=== PATIENT | female | born 1970 | race Caucasian/White ===

== ENCOUNTER 2020-09-22 13:23 | Outpatient (CLI) | payer OTHER, SELFPAY ==
--- NOTE | 2020-09-22 13:34 | MM_ITS ---
WS: [id number] SCREENING DIGITAL MAMMOGRAM WITH CAD HISTORY: SCREENING COMPARISON: None available. Bilateral CC and MLO views submitted. Computer aided detection analyzed. Breast composition: There are scattered areas of fibroglandular density. No suspicious masses, microc alcifications or architectural distortion. Lucent centered calcifications in the anterior RIGHT breas t. MM/[place] [id number] IMPRESSION: BI-RADS: 2-Benign FOLLOW UP: 1 Year Follow-up
== END 2020-09-22 13:24 | disposition home or self-care (01) ==
LOC: RADSHAW 13:28
PROVIDERS: PCP Nurse Practitioner; Visit Provider Nurse Practitioner
DX: Z12.31 Encounter for screening mammogram for malignant neoplasm of breast (principal)
CPT/HCPCS: 77067

== ENCOUNTER → 2024-03-28 09:30 | Outpatient (BNVA) | payer MEDICAID, SELFPAY | PROVIDERS: PCP Nurse Practitioner; Visit Provider Nurse Practitioner Family | DX: L57.0 Actinic keratosis (principal); L57.8 Other skin changes due to chronic exposure to nonionizing radiation; L81.5 Leukoderma, not elsewhere classified; L82.1 Other seborrheic keratosis; L82.0 Inflamed seborrheic keratosis; L81.4 Other melanin hyperpigmentation; L55.1 Sunburn of second degree; D22.4 Melanocytic nevi of scalp and neck | CPT/HCPCS: 17000; 17110; 99203 ==

== ENCOUNTER 2024-06-27 07:50 | Outpatient (CLI) | payer BC, MEDICAID, SELFPAY ==
--- NOTE | 2024-06-27 07:54 | CT_ITS ---
WS: [id number] CT THORACIC SPINE TECHNIQUE: Noncontrast CT of the thoracic spine with coronal and sagittal reformatted images. CLINICAL INFORMATION: PAIN IN THORACIC SPINE COMPARISON: None. DLP: 1140.[address] scans at [facility] use at least one of these dose optimization techniques: automated e xposure control; mA and/or kV adjustment per patient size (includes targeted exams where dose is matc hed to clinical indication); or iterative reconstruction. FINDINGS: Mild thoracic curve. Mild thoracic kyphosis. Hypertrophic changes thoracic spine. No acute appearing compression fractures. Spinal canal appears patent. No high-grade central canal stenosis. M oderate facet arthropathy lower thoracic spine. Mild chronic appearing compression deformities at T1 and T2 with endplate Schmorl's nodes. Enlarged multinodular thyroid worse involving the LEFT thyroid lobe. Adrenal glands are normal. Parti ally visualized postoperative changes at the GE junction. Moderate esophageal hiatal hernia. CT/CT thoracic spin wo con* [id number] IMPRESSION: 1. Mild thoracic curve. Mild thoracic kyphosis. 2. No acute compression fractures. 3. Spinal canal appears patent. 4. Moderate spondylitic changes. 5. Multinodular thyroid goiter. 6. Partially visualized moderate esophageal hiatal hernia.
== END 2024-06-27 07:51 | disposition home or self-care (01) ==
LOC: RAD 07:51
PROVIDERS: PCP Nurse Practitioner; Visit Provider Nurse Practitioner
DX: M46.94 Unspecified inflammatory spondylopathy, thoracic region (principal); M51.44 Schmorl's nodes, thoracic region; M89.38 Hypertrophy of bone, other site; E04.2 Nontoxic multinodular goiter; K44.9 Diaphragmatic hernia without obstruction or gangrene
CPT/HCPCS: 72128

== ENCOUNTER 2024-07-30 07:31 | Outpatient (CLI) | payer BC, MEDICAID, SELFPAY ==
--- NOTE | 2024-07-30 08:00 | MR_ITS ---
WS: [id number] MRI HEAD WITH CONTRAST TECHNIQUE: Sagittal T1, T2 axial, T2 axial FLAIR, axial susceptibility weighted imaging, axial diffus ion weighted images, and coronal T2 images were obtained. Pre and post-T1 axial and post T1 coronal i mages. ADC and FSPGR images. CLINICAL INFORMATION: G43.909 - Migraine, unspecified, not intractable, without... COMPARISON: None. FINDINGS: No evidence of restricted diffusion to suggest acute ischemia. Ventricular system and basilar cistern s are patent. Single focus of T2 hyperintensity in the RIGHT posterior periventricular white matter c an be seen with hypertension, diabetes, small vessel changes and migraine headaches. No significant p arenchymal volume loss. Small enhancing sphenoid wing meningioma measuring 5.1 x 6.5 x 9.9 mm AP by transverse by craniocauda l. Associated dural thickening. No significant underlying edema in the RIGHT temporal lobe. Normal posterior fossa. Normal vascular flow voids at the skull base. Extra-axial fluid collections. Mild mucosal in the paranasal sinuses. Mastoid air cells are well aerated. Normal posterior nasophary nx. No hemosiderin on susceptibly weighted images. Normal optic chiasm and pituitary infundibulum. Te mporal lobes hippocampal formations are normal in appearance. Incidental slightly low-lying cerebella r tonsils MR/MR head wo/w con [id number] IMPRESSION: 1. Small enhancing RIGHT sphenoid wing meningioma described above. No underlyi ng edema in the RIGHT temporal lobe. 2. No evidence of restricted diffusion to suggest acute ischemia. 3. Single small focus of T2 hyperintensity in the RIGHT posterior periventricu lar white matter nonspecific in a patient this age but can be seen with hyperte nsion, diabetes ,small vessel changes and migraine headaches. 4. No hemosiderin on the susceptibly weighted images. 5. Incidental slightly low-lying cerebellar tonsils. 6. No other acute findings.
[2024-07-30] MEDS: gadobenate dimeglumine 20 mL vial IV (08:22)
== END 2024-07-30 07:32 | disposition home or self-care (01) ==
LOC: RAD 07:31
PROVIDERS: PCP Nurse Practitioner; Visit Provider Psychiatry & Neurology Neurology
DX: D32.9 Benign neoplasm of meninges, unspecified (principal); R90.82 White matter disease, unspecified; G43.909 Migraine, unspecified, not intractable, without status migrainosus
CPT/HCPCS: 70553; A9577

== ENCOUNTER 2024-09-17 10:58 | Outpatient (CLI) | payer BC, MEDICAID, SELFPAY ==
--- NOTE | 2024-09-17 11:00 | MM_ITS ---
WS: [id number] BILATERAL 3D TOMOSYNTHESIS DIGITAL SCREENING MAMMOGRAPHY WITH CAD CLINICAL INFORMATION: SCREENING HISTORY: Screening mammogram. No current complaints. COMPARISON: 2020 TECHNIQUE: Bilateral CC and MLO views. FINDINGS: Scattered fibroglandular densities bilaterally. No suspicious focal mass, asymmetry, calcifications, or architectural distortion. No evidence of malignancy. Punctate and lucent centered calcifications R IGHT breast. MM/MM scr BI tomosynthesis [id number] IMPRESSION: DENSITY: There are scattered areas of fibroglandular density. BI-RADS: 2 - Benign. FOLLOW UP: 1 Year Follow-up Recommend return to annual screening mammography.
== END 2024-09-17 10:59 | disposition home or self-care (01) ==
LOC: MOBLMAM 10:59
PROVIDERS: PCP Nurse Practitioner; Visit Provider Nurse Practitioner
DX: Z12.31 Encounter for screening mammogram for malignant neoplasm of breast (principal); R92.323 Mammographic fibroglandular density, bilateral breasts; R92.1 Mammographic calcification found on diagnostic imaging of breast
CPT/HCPCS: 77063; 77067